=== PATIENT | male | born 1945 | race Caucasian/White ===

== ENCOUNTER 2021-09-01 10:53 | Emergency (ER) | payer MEDICARE, BC ==
[2021-09-01 11:40] LABS: ANION GAP 10.4 mEq/L (7-13); CHLORIDE,CL 97 mmol/L (98-107); SODIUM,NA 136 mmol/L (136-145)
== END 2021-09-01 12:49 | disposition home or self-care (01) ==
LOC: DL.ED 10:53
DX: C34.91 Malignant neoplasm of unspecified part of right bronchus or lung (principal); R79.81 Abnormal blood-gas level; Z79.899 Other long term (current) drug therapy
CPT/HCPCS: 36415; 71046; 80053; 85025; 99283; 99284-25